=== PATIENT | male | born 1980 | race Asian ===

== ENCOUNTER 2022-05-31 19:40 | Emergency (ER) | payer MEDICAID ==
[~2022-05-31] VITALS: Ht 177.8 cm; Wt 79.4 kg
[2022-05-31 20:21] VITALS: BP 130/71
[2022-05-31] MEDS ORDERED: CLOT15CR27 TP (21:42)
== END 2022-05-31 21:49 | disposition home or self-care (01) ==
LOC: ER 19:43
DX: S00.86XA Insect bite (nonvenomous) of other part of head, initial encounter (principal); B35.3 Tinea pedis; Z59.01 Sheltered homelessness; Z79.899 Other long term (current) drug therapy; W57.XXXA Bitten or stung by nonvenomous insect and other nonvenomous arthropods, initial encounter; Y93.89 Activity, other specified; Y92.89 Other specified places as the place of occurrence of the external cause; Y99.8 Other external cause status

== ENCOUNTER 2022-06-25 14:19 | Emergency (ER) | payer MEDICAID ==
[~2022-06-25] VITALS: Ht 172.7 cm; Wt 89.8 kg
[2022-06-25 14:19] VITALS: BP 101/69
[~2022-06-25 14:19] MED LIST: CLOT15CR27 TP
--- NOTE | 2022-06-25 14:19 | NUR ---
BIBS C/O MOUTH SORES THAT HE BELIVES HAPPENED AFTER USING A NEW MOUTHWASH, PAIN 8/10 ON PAIN SCALE. PAIN 8/10 ON PAIN SCALE.
[2022-06-25] MEDS ORDERED: CHLO473M5 PO ×2 (16:37→17:13)
[2022-06-25] MEDS ORDERED: PENI500T PO ×2 (16:37→17:13)
--- NOTE | 2022-06-25 17:15 | NUR ---
Patient discharged to home in stable condition. Written and verbal after care instructions given. Patient verbalizes understanding of instruction.
== END 2022-06-25 17:16 | disposition home or self-care (01) ==
LOC: ER 14:22
DX: K05.10 Chronic gingivitis, plaque induced (principal); Z79.899 Other long term (current) drug therapy